=== PATIENT | female | born 1980 | race Caucasian/White ===

== ENCOUNTER 2018-05-04 18:22 | Emergency (ER) | payer OTHER ==
[~2018-05-04] VITALS: Ht 167.6 cm; Wt 74.8 kg
[~2018-05-04 18:22] MED LIST: AMBIEN5 MG PO; KEPPRA250 MG PO; LAMICTAL5 MG PO; MOBIC7.5 MG PO; SKELAXIN400 MG PO; SYNTHROID50 MCG PO
[2018-05-04] MEDS ORDERED: SYNTHROID50 MCG PO (18:53)
[2018-05-04] MEDS ORDERED: LIPOCHOL CAPSU1 EACH PO (18:54)
[2018-05-04] MEDS ORDERED: LAMICTAL100 MG PO (18:54)
== END 2018-05-04 21:51 | disposition home or self-care (01) ==
LOC: ER 18:22
DX: K52.9 Noninfective gastroenteritis and colitis, unspecified (principal)

== ENCOUNTER 2018-06-09 08:00 | Emergency (ER) | payer OTHER ==
[~2018-06-09] VITALS: Ht 167.6 cm; Wt 73.9 kg
[~2018-06-09 08:00] MED LIST changes: +LAMICTAL100 MG PO; +LIPOCHOL CAPSU1 EACH PO
[2018-06-09] MEDS ORDERED: PEPCID40 MG (08:10)
== END 2018-06-09 16:19 | disposition home or self-care (01) ==
LOC: ER 08:00
DX: K29.70 Gastritis, unspecified, without bleeding (principal); R10.11 Right upper quadrant pain

== ENCOUNTER 2018-08-10 11:52 | Emergency (ER) | payer OTHER ==
[~2018-08-10] VITALS: Ht 167.6 cm; Wt 73.5 kg
[~2018-08-10 11:52] MED LIST changes: +PEPCID40 MG
== END 2018-08-10 21:46 | disposition home or self-care (01) ==
LOC: ER 11:52
DX: K80.20 Calculus of gallbladder without cholecystitis without obstruction (principal)

== ENCOUNTER 2018-08-22 08:02 | Day surgery (SDC) | payer OTHER | END 2018-08-22 16:26 | disposition home or self-care (01) | LOC: CIR.AMB 08:02 | DX: K81.1 Chronic cholecystitis (principal) ==

== ENCOUNTER 2020-06-22 08:14 | Outpatient (CLI) | payer OTHER | END 2020-06-22 08:25 | disposition home or self-care (01) | LOC: RX STUDY 08:14 | PROVIDERS: ATTEND Internal Medicine Gastroenterology | DX: K57.30 Diverticulosis of large intestine without perforation or abscess without bleeding (principal) ==

== ENCOUNTER 2024-01-26 07:26 | Outpatient (CLI) | payer OTHER | END 2024-01-26 07:38 | disposition home or self-care (01) | LOC: TOM 07:26 | PROVIDERS: ATTEND Internal Medicine | DX: K56.609 Unspecified intestinal obstruction, unspecified as to partial versus complete obstruction (principal); Z12.11 Encounter for screening for malignant neoplasm of colon ==

== ENCOUNTER 2024-09-27 05:30 | Day surgery (SDC) | payer OTHER ==
[2024-09-16 11:00] LABS: URINE APPEARANCE Clear; URINE BILIRRUBIN Negative (NEGATIVE); URINE BLOOD Negative; URINE COLOR Yellow; URINE GLUCOSE Negative (NEGATIVE); URINE KETONE Negative (NEGATIVE); URINE LEUKOCYTE Negative; URINE NITRATE Negative; URINE PROTEIN Negative (NEGATIVE); URINE UROBILINOGEN 0.2 E.U./dl
[2024-09-16 11:01] LABS: URINE BACTERIA 1312.8 uL (0.0-1933); URINE EPITHELIAL CELLS 30.9 uL (0.0-38.8); URINE RBC 12.5 uL (0.0-20.8); URINE WBC 13.9 uL (0.0-23.2)
[2024-09-16 11:05] LABS: URINE CAST 0.15 uL (0.0-1.40)
[2024-09-16 11:14] LABS: HEMATOCRIT 35.9 % (36.0-45.00); HEMOGLOBIN 11.7 g/dL (12.0-15.00); MEAN CELL VOLUME 79.5 fL (80.00-100.00); MEAN CORPUSCULAR HGB CONC 32.7 g/dl (32.0-36.0); PLATELET COUNT 304 K/uL (150-450); RED BLOOD COUNT 4.52 M/uL (4.00-6.00); RED CELL DISTRIBUTION WIDTH 17.2 % (11.5-14.5)
[2024-09-16 11:19] VITALS: BP 114/82
[2024-09-16 11:43] LABS: INR 0.94; PARTIAL THROMBOPLASTIN TIME 30.6 SECONDS (22.0-34.0); PROTHROMBIN TIME 10.3 SECONDS (9.0-11.5)
[2024-09-16 12:09] LABS: ALBUMIN 3.8 gm/dL (3.4-5.0); BILIRUBIN TOTAL 0.51 mg/dL (0.3-1.2); CALCIUM 8.9 mg/dL (8.5-10.1); CREATININE SERUM 0.61 mg/dL (0.55-1.02); GFR 105.59; GLOBULINA 2.9 G/DL (2.4-3.5); POTASSIUM 4.38 mEq/L (3.5-5.1); TOTAL PROTEIN 6.7 gm/dL (6.4-8.2)
[~2024-09-27] VITALS: Ht 167.6 cm; Wt 81.6 kg
[2024-09-27] MEDS ORDERED: CIPROFLOXACIN HCL 0.175 MG/DR DROPS OP ONE (13:30)
[2024-09-27] MEDS ORDERED: EPINEPHRINE HCL/PF 1 MG/ML AMPUL IR ONE (13:30)
[2024-09-27] MEDS ORDERED: LIDOCAINE HCL 1%/EPINEPHRINE 20ML VIAL IJ ONE (13:30)
[2024-09-27] MEDS ORDERED: POVIDONE-IODINE 118 ML BOTT TOP ONE (13:30)
[2024-09-27] MEDS ORDERED: CEFAZOLIN SODIUM 1,000 MG VIAL IV ONE (13:30)
[2024-09-27] MEDS ORDERED: CEPHALEXIN500 M1 PO (14:40)
[2024-09-27] MEDS ORDERED: CIPROFLOXACIN2.5 ML OTIC (14:40)
== END 2024-09-27 17:25 | disposition home or self-care (01) ==
LOC: CIR.AMB 05:30
PROVIDERS: ATTEND Otolaryngology Otology & Neurotology
DX: H80.81 Other otosclerosis, right ear (principal); H90.11 Conductive hearing loss, unilateral, right ear, with unrestricted hearing on the contralateral side